=== PATIENT | female | born 2000 | race Caucasian/White ===

== ENCOUNTER 2022-09-13 15:25 | Emergency (ER) | payer OTHER ==
[2022-09-13] MEDS: Acetaminophen/HYDROcodone 325-10 MG Tab PO ONE (16:22)
[2022-09-13] MEDS: Diphtheria,Pertussis(Acell),Tetanus Vaccine 0.5 ML Syringe IM ONE (16:37)
== END 2022-09-13 16:42 | disposition home or self-care (01) ==
LOC: VM.ED 15:25
DX: S60.042A Contusion of left ring finger without damage to nail, initial encounter (principal); Z23 Encounter for immunization; W23.0XXA Caught, crushed, jammed, or pinched between moving objects, initial encounter
CPT/HCPCS: 73140; 90471; 90715; 99283; A9270